=== PATIENT | male | born 1955 | race Caucasian/White ===

== ENCOUNTER 2017-05-30 11:27 | Outpatient (CLI) | payer OTHER ==
--- NOTE | 2017-05-30 13:02 | XRAY Report ---
DATE OF SERVICE: 05/30/2017 RIGHT SHOULDER: 05/30/2017 COMPARISON: None. INDICATION: Right shoulder pain. TECHNIQUE: Two views of the shoulder. FINDINGS: Normal alignment. No evidence of acute fracture. There are mild degenerative changes of the acromioclavicular joint. IMPRESSION: MILD AC JOINT ARTHROSIS. TD: 05/30/2017 14:00 MTDD
== END 2017-05-30 11:28 | disposition home or self-care (01) ==
LOC: DI 11:27
PROVIDERS: ATTEND Internal Medicine
DX: M19.011 Primary osteoarthritis, right shoulder (principal)

== ENCOUNTER 2017-06-23 14:12 | Outpatient (CLI) | payer OTHER ==
--- NOTE | 2017-06-23 18:22 | MRI Report ---
EXAM: RIGHT SHOULDER MRI WITHOUT CONTRAST EXAM DATE: 06/23/2017 03:37 PM. CLINICAL HISTORY: Right rotator cuff tear. COMPARISON: Plain x-ray from 05/30/2017. TECHNIQUE: Multiplanar, multisequence T1-weighted and fluid-sensitive sequences of the shoulder witho ut contrast. Other: None. FINDINGS: Acromioclavicular Region: There is a type II unipartite undersurface osseous acromion shape. AC joint shows moderate osteoarthritic change, small AC joint effusion also noted. The coracoacromial and cor acoclavicular ligaments are intact. Moderate amount of fluid in the bursa. Glenohumeral Region: Significant superior subluxation of the humeral head with respect to the glenoid . Moderate-sized joint effusion. Some debris also seen in the joint. Some cartilaginous thinning seen particularly at the inferior half of the humeral head. Glenoid also shows cartilaginous thinning as well. Glenohumeral ligaments are somewhat edematous, difficult to assess on the axials because of mot ion. Bone Marrow: No fracture, marrow edema or bone lesions. Labrum: Small sub-labral hole anteriorly. No tears. Musculature/Rotator Cuff: Full-thickness tear and proximal retraction of the subscapularis, supraspin atus and infraspinatus portions of the rotator cuff with at least 4 cm proximal retraction. Significa nt edema seen in the musculotendinous junction of these muscle bundles. There is minimal fatty atroph y of the supraspinatus and infraspinatus portions of the rotator cuff. Biceps Tendon: Long head of the biceps is subluxed medially into the anterior aspect of the glenohume ral joint. Other: The subcutaneous tissues are unremarkable. IMPRESSION: 1. There is a type II unipartite undersurface osseous acromion shape. AC joint shows moderate osteoar thritic change, small AC joint effusion. Moderate amount of bursal fluid is present. 2. Significant superior subluxation of the humeral head with respect to the glenoid. Moderate joint e ffusion with some debris. Cartilaginous thinning on both sides of the inferior half of the joint. 3. Full-thickness tears and proximal retraction of the subscapularis, supraspinatus and infraspinatus portions of the rotator cuff, there is at least 4 cm of proximal cuff retraction measured at the sup raspinatus. Edema is seen in the musculotendinous junction of these muscle bundles. Minimal fatty atr ophy of the supraspinatus and infraspinatus muscle bundles. 4. Sub-labral hole seen anteriorly, no labral tears. 5. Long head of the biceps is subluxed medially into the anterior aspect of the glenohumeral joint. [facility]CULOS[facility] SECTION Referring Provider Line: [phone] SITE ID: [id number]
== END 2017-06-23 14:13 | disposition home or self-care (01) ==
LOC: DI 14:12
PROVIDERS: ATTEND Orthopaedic Surgery
DX: S43.001A Unspecified subluxation of right shoulder joint, initial encounter (principal); M19.011 Primary osteoarthritis, right shoulder; M75.121 Complete rotator cuff tear or rupture of right shoulder, not specified as traumatic

== ENCOUNTER 2020-06-28 13:38 | Emergency (ER) | payer MEDICARE, OTHER ==
--- NOTE | 2020-06-28 14:06 | ED Physician Documentation ---
PD HPI ABD PAIN - Stated complaint Stated Complaint: LOW ABDOMINAL PX - Chief complaint Chief Complaint: Abd Pain - History obtained from History obtained from: Patient - History of Present Illness Timing - onset: How many months ago (has had 2 pains: epigastric pain/burning with lying down, with spicy foods, and improved with antacids intermittently for 2 months. However is now having 1-2 days of mid to lower abd pain that is crampy and different from other pain.) Timing - duration: Days (2 days of the current mid/lower abd pain) Timing - details: Gradual onset, Waxing and waning Quality: Cramping, Aching Location: Periumbilical, Suprapubic Radiation: No: Left flank, Right flank Worsened by: No: Eating, Breathing, Palpation Associated symptoms: Nausea. No: Fever, Vomiting, Diarrhea Similar symptoms before: Has not had sx before Recently seen: Not recently seen Review of Systems Constitutional: denies: Fever, Chills Nose: denies: Rhinorrhea / runny nose, Congestion Throat: denies: Sore throat Cardiac: denies: Chest pain / pressure Respiratory: denies: Cough GI: reports: Nausea. denies: Abdominal Swelling, Vomiting, Constipation, Diarrhea, Bloody / black stool : denies: Dysuria, Frequency Skin: denies: Rash, Lesions Neurologic: denies: Near syncope PD PAST MEDICAL HISTORY - Past Medical History Cardiovascular: Hypertension Respiratory: None Neuro: None Endocrine/Autoimmune: None - Present Medications Home Medications: Ambulatory Orders Medication Instructions Recorded Confirmed Famotidine [Pepcid AC] 10 mg PO DAILY PRN 06/28/20 06/28/20 HYDROcod/ACETAM 5/325 [[place] 5/325] 1 ea PO Q6H PRN #10 tablet 06/28/20 Lidocaine Viscous 2% [Xylocaine 5 ml PO Q4H PRN #100 ml 06/28/20 Viscous 2%] Naproxen Sodium 275 mg PO BID #15 tablet 06/28/20 Pantoprazole Sodium 20 mg PO DAILY #30 tablet. 06/28/20 - Allergies Allergies/Adverse Reactions: Allergies Allergy/AdvReac Type Severity Reaction Status Date / Time No Known Drug Allergies Allergy Verified 06/28/20 13:57 PD ED PE NORMAL - Vitals Vital signs reviewed: Yes - General General: Alert and oriented X 3, No acute distress, Well developed/nourished - Neck Neck: Supple, no meningeal sign, No adenopathy - Cardiac Cardiac: RRR, No murmur - Respiratory Respiratory: Clear bilaterally - Abdomen Abdomen: Normal bowel sounds, Soft, Non distended, No organomegaly, Other (tender mid abd without guarding nor percussion tenderness. ) - Male Male : Deferred - Rectal Rectal: Deferred - Back Back: No CVA TTP - Derm Derm: Normal color, Warm and dry - Extremities Extremities: No tenderness to palpate, Normal ROM s pain, No edema, No calf tenderness / cord - Neuro Neuro: Alert and oriented X 3, No motor deficit, Normal speech Results - Vitals Vitals: Vital Signs - 24 hr 06/28/20 06/28/20 06/28/20 13:54 14:30 15:24 Temperature 36.7 C 37.3 C Heart Rate 98 77 67 Respiratory 16 18 16 Rate Blood Pressure 141/86 H 120/87 H 113/73 O2 Saturation 96 97 99 06/28/20 16:33 Temperature 37.1 C Heart Rate 81 Respiratory 16 Rate Blood Pressure 126/82 H O2 Saturation 99 Oxygen O2 Source Room air - Labs Labs: Laboratory Tests 06/28/20 06/28/20 06/28/20 14:35 14:40 14:40 WBC 6.2 RBC 5.08 Hgb 15.0 Hct 44.9 MCV 88.4 MCH 29.5 MCHC 33.4 RDW 12.5 Plt Count 228 MPV 10.4 Neut # (Auto) 4.4 Lymph # (Auto) 1.1 L [place] # (Auto) 0.7 Eos # (Auto) 0.0 Baso # (Auto) 0.0 Absolute Nucleated RBC 0.00 Nucleated RBC % 0.0 Sodium 134 L Potassium 4.0 Chloride 103 Carbon Dioxide 25 Anion Gap 6.0 BUN 12 Creatinine 0.8 Estimated GFR (MDRD) 97 Glucose 133 H Calcium 9.3 Total Bilirubin 0.9 AST 20 ALT 22 Alkaline Phosphatase 48 Total Protein 7.5 Albumin 4.5 Globulin 3.0 Albumin/Globulin Ratio 1.5 Lipase 30 Urine Color YELLOW Urine Clarity CLEAR Urine pH 6.0 Ur Specific [place] 1.025 Urine Protein NEGATIVE Urine Glucose (UA) NEGATIVE Urine Ketones TRACE Urine Occult Blood NEGATIVE Urine Nitrite NEGATIVE Urine Bilirubin NEGATIVE Urine Urobilinogen 0.2 (NORMAL) Ur Leukocyte Esterase NEGATIVE Ur Microscopic Review NOT INDICATED Urine Culture Comments NOT INDICATED - Rads (name of study) abd/pelvic CT Radiology: Prelim report reviewed (diffuse diverticulosis, without specific diverticulitis evident. Left adrenal gland nodule incidental noted. Follow up or prior comparison recommended. ), See rad report PD MEDICAL DECISION MAKING - ED course Complexity details: considered differential (having longer pain that sounds like gastritis/GERD. Current pain for 2 days presume some diverticular inflammation, but not evident diverticulitis per se. No other apparent cause (normal appendix, not tender in GB area, no other acute finding). ), d/w patient Departure - Departure Disposition: Home, Self Care Clinical Impression: Abdominal pain Qualifiers: Abdominal location: periumbilical Qualified Code(s): R10.33 - Periumbilical pain Condition: Stable Record reviewed to determine appropriate education?: Yes Instructions: ED Abdominal Pain Unkn Cause Prescriptions: Naproxen Sodium 275 mg PO BID #15 tablet HYDROcod/ACETAM 5/325 [[place] 5/325] 1 ea PO Q6H PRN #10 tablet PRN Reason: Pain Pantoprazole Sodium 20 mg PO DAILY #30 tablet. Lidocaine Viscous 2% [Xylocaine Viscous 2%] 5 ml PO Q4H PRN #100 ml PRN Reason: Pain Comments: [place] food and nothing to spicy. Minimal caffeine. No alcohol. It does sound like some of your symptoms are possibly reflux related with irritation of the esophagus and stomach. Continue your current medicines and add pantoprazole daily for a few weeks. Use some antacids such as Maalox or Mylanta and you can add lidocaine to that periodically if needed for upper abdominal discomfort. It also sounds likely they have some intestinal irritation. Your CT scan and blood test did not show any localized area of infection or local inflammation. However the location of your pain and character of it can be suggestive of some inflammation of diverticula. You do have diverticula on your CT scan but no current local diverticulitis. I would try anti-inflammatories twice daily with food for this. Add pain medicine if needed. Recheck if not improved well over the next several days and return if worsening. Discharge Date/Time: 06/28/20 16:59
[2020-06-28] MEDS ORDERED: KETOROLAC 15 MG/ML VIAL IVP STA (14:30)
[2020-06-28] MEDS ORDERED: MORPHINE 10 MG/ML VIAL IVP STA (14:30)
[2020-06-28] MEDS ORDERED: SODIUM CHLORIDE 0.9% 1,000 ML IV STA (14:30)
[2020-06-28 14:46] LABS: BILIRUBIN,URINE NEGATIVE (NEGATIVE); GLUCOSE, URINE (UA) NEGATIVE (NEGATIVE); KETONES,URINE (UA) TRACE mg/dL (NEGATIVE); LEUKOCYTE ESTERASE, URINE NEGATIVE (NEGATIVE); NITRITE,URINE NEGATIVE (NEGATIVE); OCCULT BLOOD,URINE NEGATIVE (NEGATIVE); PROTEIN,URINE NEGATIVE (NEGATIVE); UROBILINOGEN,URINE 0.2 (NORMAL) E.U./dL (NORMAL)
[2020-06-28] MEDS ORDERED: IOVERSOL 320 100 ML VIAL IVP ONE ×2 (14:52→15:52)
[2020-06-28 14:53] LABS: CLARITY,URINE CLEAR (CLEAR)
[2020-06-28 15:00] LABS: BASOPHILS % (AUTO) 0.5 %; EOSINOPHILS % (AUTO) 0.5 %; LYMPHOCYTES # (AUTO) 1.1 10^3/uL (1.5-3.5); LYMPHOCYTES % (AUTO) 17.2 %; MEAN CORPUSCULAR HEMOGLOBIN 29.5 pg (27.0-31.0); MEAN CORPUSCULAR HGB CONC 33.4 g/dL (32.0-36.0); MEAN CORPUSCULAR VOLUME 88.4 fL (80.0-94.0); MEAN PLATELET VOLUME 10.4 fL (7.4-11.4); MONOCYTES # (AUTO) 0.7 10^3/uL (0.0-1.0); MONOCYTES % (AUTO) 10.5 %; NEUTROPHILS # (AUTO) 4.4 10^3/uL (1.5-6.6); PLT - PLATELET COUNT 228 10^3/uL (130-450); RED BLOOD COUNT 5.08 10^6/uL (4.70-6.10); RED CELL DISTRIBUTION WIDTH 12.5 % (12.0-15.0); WHITE BLOOD COUNT 6.2 x10^3/uL (4.8-10.8)
[2020-06-28 15:25] LABS: ALBUMIN 4.5 g/dL (3.2-5.5); ALBUMIN/GLOBULIN RATIO 1.5 (1.0-2.2); BILIRUBIN,TOTAL 0.9 mg/dL (0.2-1.0); CALCIUM 9.3 mg/dL (8.5-10.3); CREATININE 0.8 mg/dL (0.6-1.2); TOTAL PROTEIN 7.5 g/dL (6.7-8.2)
--- NOTE | 2020-06-28 16:10 | CT Report ---
PROCEDURE: Abdomen/Pelvis W INDICATIONS: LLQ Abdominal pain, diverticulitis suspected CONTRAST: IV CONTRAST: Optiray 320 ml: 100 PO CONTRAST: *NO PO CONTRAST TECHNIQUE: After the administration of intravenous contrast, 5 mm thick sections acquired from the diaphragms to the symphysis. 5 mm thick coronal and sagittal reformats were acquired. For radiation dose reducti on, the following was used: automated exposure control, adjustment of mA and/or kV according to kellen ent size. COMPARISON: None. FINDINGS: Image quality: Excellent. ABDOMEN: Lung bases: Lung bases are clear. Heart size is normal. Solid organs:. A few simple cysts in both kidneys. No hydronephrosis. Symmetric perinephric fat stran ding, nonspecific. Normal CT appearance of the liver, spleen, and pancreas. Nodule within the lateral limb of the left adrenal gland measures 2.6 cm with indeterminate attenuation of approximately 36 [place] units. Peritoneum and bowel: There is no abnormally dilated or thickened loops of bowel. No pericolonic or m esenteric inflammatory changes. The sigmoid colon is redundant with extensive diverticulosis. There i s no fat stranding surrounding a portion of the sigmoid colon or a sigmoid diverticulum to indicate d iverticulitis. No free fluid or free air. The appendix is normal. Nodes and vessels: No retroperitoneal or mesenteric adenopathy by size criteria. Aorta and inferior vena cava are normal in size. Miscellaneous: No ventral hernias. PELVIS: Genitourinary: Bladder wall thickness is normal. Miscellaneous: No inguinal hernias or adenopathy. Bones: No suspicious bony lesions. No vertebral body compression fractures. IMPRESSION: Extensive sigmoid diverticulosis without findings of diverticulitis currently. Indeterminate left adrenal gland nodule measuring approximately 2.6 cm, which cannot be characterized definitively on the basis of density. Adrenal protocol CT recommended unless comparison with any opal or outside studies can document stability. Reviewed by: Curly Khalil MD on 06/28/2020 4:09 PM PST Approved by: Curly Khalil MD on 06/28/2020 4:09 PM PST Station ID: [id number]
[2020-06-28 16:34] VITALS: BP 126/82
[2020-06-28] MEDS ORDERED: ACETAMINOPHEN 325 MG TABLET PO STA (16:37)
[2020-06-28] MEDS ORDERED: MAG HYDROX/AL HYDROX/SIMETH 30 ML UDC PO STA (16:37)
== END 2020-06-28 16:59 | disposition home or self-care (01) ==
LOC: ED 13:38
DX: R10.33 Periumbilical pain (principal); R11.0 Nausea; K57.30 Diverticulosis of large intestine without perforation or abscess without bleeding; E27.8 Other specified disorders of adrenal gland; I10 Essential (primary) hypertension
CPT/HCPCS: 36415; 74177; 80053; 81003; 83690; 85025; 96361; 96374; 99284; A9270; Q9967; 81001; 87086